=== PATIENT | female | born 1965 | race Caucasian/White ===

== ENCOUNTER 2021-03-25 15:08 | Observation (INO) ==
[2021-03-25] MEDS ORDERED: Magnesium Sulfate 2 gm BAG 2 GM/50 ML BAG IVPB ONE (20:54)
[2021-03-25 22:04] LABS: Calcium 9.8 mg/dL (8.6-10.3); eGFR CKD-EPI 80.7 (>60)
[2021-03-25] MEDS ORDERED: Potassium Chloride LIQUID 20 MEQ/15 ML LIQUID PO ONE (22:15)
[2021-03-25] MEDS: KCL 20 MEQ/100 ML IVPREMIX 20 MEQ/100 ML BAG IV SCH (22:31)
[2021-03-25 22:36] LABS: Urine Appearance Clear; Urine Bilirubin Negative (Negative); Urine Blood Negative (Negative); Urine Color Straw; Urine Glucose 2+(150 mg/dL) (Negative); Urine Ketones Negative (Negative); Urine Nitrite Negative (Negative); Urine Protein Negative (Negative); Urine Specific Gravity 1.009 (1.002-1.030); Urine Urobilinogen Negative (Negative)
[2021-03-26] MEDS: KCL 20 MEQ/100 ML IVPREMIX 20 MEQ/100 ML BAG IV SCH ×4 (01:18→09:43)
[2021-03-26] MEDS ORDERED: Potassium Chlor 20 meq TAB.ER PO ONE (01:31)
[2021-03-26] MEDS ORDERED: KCL 20 MEQ/100 ML IVPREMIX 20 MEQ/100 ML BAG IV SCH (03:00)
[2021-03-26] MEDS ORDERED: Labetalol IV 5 MG/ML 20 ml VIAL IV PUSH ONE (05:39)
[2021-03-26 06:48] LABS: Calcium 9.3 mg/dL (8.6-10.3); eGFR CKD-EPI 93.6 (>60)
[2021-03-26 07:02] LABS: Potassium 2.5 mmol/L (3.5-5.0)
[2021-03-26 11:26] LABS: Calcium 9.3 mg/dL (8.6-10.3); eGFR CKD-EPI 92.2 (>60)
[2021-03-26 11:31] LABS: Potassium 2.4 mmol/L (3.5-5.0)
[2021-03-26] MEDS ORDERED: Potassium Chlor 20 meq TAB.ER PO SCH (14:00)
[2021-03-26] MEDS: Potassium Chloride LIQUID 20 MEQ/15 ML LIQUID PO SCH ×2 (17:48→22:25)
[2021-03-26 18:09] LABS: Calcium 9.5 mg/dL (8.6-10.3); Potassium 2.8 mmol/L (3.5-5.0); eGFR CKD-EPI 80.7 (>60)
[2021-03-27 07:10] LABS: Calcium 9.2 mg/dL (8.6-10.3); Magnesium 1.7 mg/dL (1.9-2.7); Potassium 2.8 mmol/L (3.5-5.0); eGFR CKD-EPI 98.3 (>60)
[2021-03-27] MEDS ORDERED: Magnesium Sulfate 2 gm BAG 2 GM/50 ML BAG IVPB ONE (07:14)
[2021-03-27] MEDS: Potassium Chloride LIQUID 20 MEQ/15 ML LIQUID PO SCH ×3 (08:00→17:24)
[2021-03-27] MEDS ORDERED: Flu vaccine *QUAD* 2021-22* 0.5 ML SYRINGE IM ONE (09:00)
[2021-03-27 12:43] LABS: Calcium 9.4 mg/dL (8.6-10.3); eGFR CKD-EPI 101.6 (>60)
[2021-03-27 12:48] LABS: EBV Capsid Ag IgG Ab Positive (Negative); EBV Capsid Ag IgM Ab Negative (Negative); Epstein-Barr Nuclear Antigen Positive (Negative)
[2021-03-27 12:57] LABS: Potassium 2.7 mmol/L (3.5-5.0)
[2021-03-27] MEDS ORDERED: NS 0.9% w/ 40 Meq KCL 1000 ML 1,000 ML IV SCH (14:00)
[2021-03-27 19:17] LABS: Calcium 8.8 mg/dL (8.6-10.3); Potassium 3.6 mmol/L (3.5-5.0); eGFR CKD-EPI 81.9 (>60)
[2021-03-27 19:51] VITALS: BP 164/84
[2021-03-27] MEDS ORDERED: Metoprolol Succinate XL 200 mg TAB PO SCH (21:00)
[2021-03-29 23:23] LABS: Anaplasma phagocytophilum Negative (Negative); B. miyamotoi PCR, B Negative (Negative); Babesia divergens/MO-1 Negative (Negative); Babesia ducani Negative (Negative); Ehrlichia chaffeensis Negative (Negative); Ehrlichia ewingii/canis Negative (Negative); Ehrlichia muris eauclairensis Negative (Negative)
== END 2021-03-27 21:48 | disposition home or self-care (01) ==
LOC: SSU 15:08 → ED 15:08 → SUATTDRO 03-26 00:58 → SSU 03-26 02:16
PROVIDERS: ADMIT Hospitalist; ATTEND Student in an Organized Health Care Education/Training Program